=== PATIENT | female | born 1945 | race Caucasian/White ===

== ENCOUNTER 2024-06-29 15:07 | Outpatient (AMB) | payer MEDICARE, OTHER, SELFPAY ==
--- NOTE | 2024-06-29 15:07 | MHC.OFFVIS ---
Vital Signs 06/29/24 15:11 Height 5 ft 2.5 in Weight 145 lb 8.081 oz BMI 26.2 BP 140/64 H Blood Pressure Location Lt brachial Position Sitting Pulse 97 Pulse Source Pulse Oximeter Pulse Oximetry (%) 90 L Oxygen Delivery Method Nasal Cannula Intake Visit Reasons: Emphysema Allergies lisinopril Allergy (Severe, Verified 06/29/24 15:12) Anaphylaxis HPI Comments Details: The patient is here for pulmonary evaluation. The patient is a 78-year-old woman known history of COPD who apparently was in his usual state health until back in the fall 2023 she started developing shortness of breath and chest discomfort. Initially she was admitted to [facility] and was thought to have a demand myocardial infarction possibly from underlying COPD. She was subsequently discharged. She did then get an appointment with Cardiology who then had her do additional testing. It was concerning for active CAD and she was sent for percutaneous coronary intervention at [facility]. However, that can not be done and was recommended that she have open heart surgery for her CAD. She did undergo her surgery in the fall tolerating the surgery well. Postoperatively she had issues with a hydropneumothorax. She did have a chest tube in place. She did have significant subcutaneous air. Ultimately that chest about the replaced. The diffusing was improved in the pneumothorax subsided. The patient had a CT scan of the chest last in December 2023 which I personally reviewed with the patient. She does have extensive emphysema. She does have postoperative changes. Still residual subcutaneous air present. But now in the right lower lobe she has a masslike densities. Likely inflammatory infectious although they could not rule out malignancy. Therefore, this point we need to have a follow-up CAT scan. She has not had pulmonary function studies and some time with should also reassess her condition. From a respiratory status she had been on Stiolto. She does want to be on inhaled steroids because of the risk of infection as she has had multiple infections in the past. She does have sections congestion in the mucus is typically like green in color. Typically worse in the morning. She uses the nebulizer 2 to 3 times a day and also her inhaler multiple times a day. In part because he can not breathe in part because she is very anxious when she can not breathe. In the office we were able to get a sputum sample was sent for culture for both AFB and Gram stain. In the meantime will start her on azithromycin 3 times a week for chronic bronchitis and macrolide suppression therapy. She will continue the Stiolto for now. I do believe that Ohtuvayre nebulizer therapy will be a good option for her to decrease her significant mucus burden and to improve her obstructive airway disease. We will request the nebulized medicine from her insurance company. For now she is also using DuoNeb with some really although partially. She does use oxygen. She does not portable oxygen concentrator that she uses with activity. Therefore, will have the patient start the new medicine get a CT scan of the chest to follow-up the masslike densities and also order some PFTs and have her come back so we can review the results and see her response to therapy. The patient is aware that when she starts the azithromycin she will come in for an EKG to make sure that her QT is within normal limits. [facility] Medical History (Updated 06/29/24 @ 23:16 by Jong Woodson MD) Chronic respiratory failure Pleural effusion Pulmonary nodules COPD (chronic obstructive pulmonary disease) Review of Systems Const Denies chills, Denies daytime sleepiness, Denies fatigue, Denies fever(s), Denies snoring and Denies stops breathing during sleep Eyes Reports change in vision ENT Denies dizziness and Denies hearing loss Card Denies chest pain, Denies irregular heart rhythm, Denies claudication, Denies leg edema, Denies lightheadedness, Denies palpitations, Reports dyspnea on exertion and Denies orthopnea Resp Reports change in phlegm color, Reports chest congestion, Reports cough, Reports excessive phlegm production, Reports dyspnea on exertion, Denies snoring and Reports wheezing GI Denies abdominal pain, Denies hematochezia, Denies change in bowel habits, Denies nausea and Denies vomiting Denies urinary frequency and Denies dysuria Musc Denies arthralgias, Denies muscle weakness, Denies numbness and Denies other Skin/Breast Denies nail changes and Denies rash Neuro Denies Abnormal speech present, Denies dizziness, Denies memory loss and Denies numbness Psych Denies depression and Denies memory loss Endo Denies fatigue and Denies palpitations Bhavesh/Lymph Denies easy bruising Aller/Immun Reports wheezing Physical Exam Vital Signs: Last Vital Signs Pulse 97 06/29/24 15:11 BP 140/64 H 06/29/24 15:11 Pulse Ox 90 L 06/29/24 15:11 Oxygen Delivery Method Nasal Cannula 06/29/24 15:11 BMI result Body Mass Index 26.2 Const General: comfortable HEENT Head: Yes normocephalic Neck Neck: Yes supple Chest Chest palpation & inspection: normal inspection of the chest Resp Effort & Inspection: normal respiratory effort and prolonged expiratory phase Auscultation: rhonchi and diminished lung sounds Cardio Heart sounds: S1 normal heart sound present and S2 normal heart sound present GI Palpation (GI): Soft to palpation Skin General skin exam: no rashes or lesions noted Neuro Speech: No Abnormal speech present Extrem General: Yes clubbing and No cyanosis Results Reviewed Results Reviewed: Assessment & Plan Assessment & Plan (1) Pulmonary nodules: Code(s): R91.8 - Other nonspecific abnormal finding of lung field Category: Medical (2) Pleural effusion: Code(s): J90 - Pleural effusion, not elsewhere classified Category: Medical (3) COPD (chronic obstructive pulmonary disease): Code(s): J44.9 - Chronic obstructive pulmonary disease, unspecified Category: Medical Qualifiers: COPD type: chronic bronchitis Chronic bronchitis type: mucopurulent Qualified Code(s): J41.1 - Mucopurulent chronic bronchitis (4) Chronic respiratory failure: Code(s): J96.10 - Chronic respiratory failure, unspecified whether with hypoxia or hypercapnia Category: Medical Qualifiers: Respiratory failure complication: hypoxia Qualified Code(s): J96.11 - Chronic respiratory failure with hypoxia Plan continue Stiolto SANTI as needed Start Azithromycin MWF, will check EKG Start Ohtuvayre nebs BID CPT with acapella valve CT chest to f/u pulmonary densities in the RLL noted on CT chest 12/2023 from [facility] PFTs continue oxygen suppementation with POC F/U 2 months Orders: Orders Sputum Cult + Gram stain Today R91.1 - Solitary pulmonary nodule Acid-fast Culture + Smear Today R91.1 - Solitary pulmonary nodule PFT pulmonary function test Today J44.9 - Chronic obstructive pulmonary disease, unspecified, R91.8 - Other nonspecific abnormal finding of lung field ECG 12 lead EKG Today J44.9 - Chronic obstructive pulmonary disease, unspecified, R91.8 - Other nonspecific abnormal finding of lung field CT chest wo IV con Today J90 - Pleural effusion, not elsewhere classified, R91.8 - Other nonspecific abnormal finding of lung field Medications: New azithromycin Take 1 tablet on Friday/Friday/Friday 250 mg PO 3XW 12 tabs 6RF 28 days K21.9 - Gastro-esophageal reflux disease without esophagitis Coding Level of Care Code New Pt Level 5 (06863) Diagnoses Pulmonary nodules R91.8 Pleural effusion J90 Mucopurulent chronic bronchitis J41.1 COPD type: chronic bronchitis Chronic bronchitis type: mucopurulent Chronic respiratory failure with hypoxia J96.11 Respiratory failure complication: hypoxia Time Spent (min) 60
[2024-06-29 15:11] VITALS: BP 140/64; PULSE 97; O2SAT 90; BMI 26.2
--- OUTSIDE RECORDS SUMMARY | 2024-06-29 18:25 | XMS_ITS ---
Author Name [facility] Organization Unknown Care Team Organization Name Specialty Phone Email Start Date End [facility] 2023 [facility] 05/27/2023
--- OUTSIDE RECORDS SUMMARY | 2024-06-29 18:25 | XMS_ITS | Clinical Summary ---
Author Organization [facility] Address [address] [place] [address] Care Team Providers Care Flexographic Press Set Up Operator Name Role Phone Jose Kilpatrick MD Primary Care Provider [phone] Allergies Active Allergy Reactions Criticality Noted Date Comments Clindamycin 06/03/2023 Lisinopril Other (See Comments) 05/28/2023 Stopped breathing Medications Medication Sig Dispensed Refills Start Date End Date Status PARoxetine (PAXIL) 10 MG tablet Take 1 tablet (10 mg total) by mouth every morning. 0 Active Multiple Vitamin (MULTI-VITAMIN PO) Take by mouth daily. 0 Active Khagskv-Kcdzgijgslu-Jj rmoterol (BREZTRI AEROSPHERE IN) Inhale into the lungs 2 (two) times a day. 0 Active albuterol 108 (90 Base) MCG/ACT inhaler Inhale 2 puffs into the lungs every 6 (six) hours as needed for wheezing. 0 Active aspirin EC 81 MG tablet Take 1 tablet (81 mg total) by mouth daily. 0 Active Social History Tobacco Use Types Packs/Day Years Used Date Smoking Tobacco: Former Cigarettes 1 50 Q uit: 2022 Smokeless Tobacco: Never Tobacco Cessation:Counseling Given: Not Answered Alcohol Use Standard Drinks/Week Comments Not Currently 0 (1 standard drink = 0.6 oz pur e alcohol) Sex and Gender Information Value Date Recorded Sex Assigned at Female 05/28/2023 10:13 AM EDT Gender Identity Not on file Sexual Orientation Not on file Job Start Date Occupation Industry Not on file Not on file Not on file Last Filed Vital Signs Vital Sign Reading Time Taken Comments Blood Pressure - - Pulse - - Temperature - - Respiratory Rate - - Oxygen Saturation - - Inhaled Oxygen Concentration - - Weight 68 kg (150 lb) 05/28/2023 10:11 AM EDT Height 158.8 cm (5' 2.5 ) 05/28/2023 10:11 AM ED T Body Mass Index 27 05/28/2023 10:11 AM EDT Plan of Treatment Not on file Care Teams Flexographic Press Set Up Operator Relationship Specialty Start Date End Date Jose Kilpatrick MD [address] [place] [address] PCP - General Internal Medicine 05/29/23
--- OUTSIDE RECORDS SUMMARY | 2024-06-29 18:25 | XMS_ITS | Continuity of Care Document ---
Author Organization 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 Lipitor Weakness of leg Acti ve WILL inhibitors 1 Unable to assess criticality Persistent Severe Angioedema Active 1Angioedema requiring intubation 11/2016 Immunizations Given and Recorded Vaccine Date Status Refusal Reason tetanus/diphtheria/pertussis, acel(Tdap) 04/03/24 Recorded tetanus/diphtheria/pertussis, acel(Tdap) 01/07/19 Recorded SARS-CoV-2(COVID-19)mRNA-LNP vac([id number]) 04/03/24 Recorded SARS-CoV-2(COVID-19)mRNA-LNP vac([id number]) 03/13/23 Recorded influenza virus vaccine, inactivated 12/04/23 Give n influenza virus vaccine, inactivated 12/14/22 Jackson rded influenza virus vaccine, inactivated 01/06/22 Jackson rded influenza virus vaccine, inactivated 12/22/20 Jackson rded influenza virus vaccine, inactivated 10/3/19 Jackson rded influenza virus vaccine, inactivated 12/04/12 Give n pneumococcal 20-valent conjugate vaccine 06/19/23 Recorded pneumococcal 20-valent conjugate vaccine 06/19/23 Recorded RSV vaccine preF3, recombinant 12/14/22 Recorded [id number] 12y+ bivalent booster vax 1 12/11/21 Recorded SARS-CoV-2 (COVID-19) mRNA-1273 vaccine 06/16/21 R ecorded SARS-CoV-2 (COVID-19) mRNA-1273 vaccine 01/12/21 R ecorded SARS-CoV-2 (COVID-19) mRNA-1273 vaccine 06/07/20 G iven SARS-CoV-2 (COVID-19) mRNA-1273 vaccine 05/10/20 G iven Influenza Virus Vaccine (oldterm) 11/26/19 Recorde d zoster vaccine, inactivated 09/23/18 Recorded zoster vaccine, inactivated 09/01/18 Recorded zoster vaccine, inactivated 06/17/18 Recorded zoster vaccine, inactivated 06/14/18 Recorded pneumococcal 13-valent vaccine 07/11/14 Recorded Zoster Vaccine Live 06/01/12 Recorded Zoster Vaccine Live 09/20/10 Recorded pneumococcal 23-valent vaccine 06/01/12 Recorded 1Result Comment: Administered at [facility] Medications Aerochamber See Instructions, # 1 Unknown, Maintenance, to be used with inhalers as directed, 04/21/23 1:25:00 PMEST, Supply, 160, cm, 04/16/23 11:50:00 EST, Height Start Date: 04/21/23 Status: Ordered Quantity: 1.0 Unit: Unknown Repeat number: 1 albuterol CFC free 90 mcg/inh inhalation aerosol 180 mcg, 2, puffs, Inhalation, Every 4 hours, PRN, Refills 0, Maintenance, 12/18/23 9:29:00 AM EDT, Inhaler Start Date: 12/18/23 Status: Ordered Repeat number: 1 albuterol-ipratropium 3 mg-0.5 mg/3 ml inhalation solution BAND Nebulizer, 4 times a day, 0 Refills, Maintenance, 12/17/23 3:24:00 PM EDT, Inhalation Solution,Partial fill upon patient request if the prescription is for a schedule II opioid drug. Start Date: 12/17/23 Status: Ordered Repeat number: 1 aspirin 81 mg oral capsule 1 capsule = 81 mg, By Mouth, Daily in AM, # 30 capsule, 0 Refills, Maintenance, 12/26/23 6:39:00 AMEDT, Capsule, [facility], Partial fill upon patient request if the prescription is for a schedule II opioid drug., 158, cm, 12/18/23 14:28:00 EDT, Height, 72, kg, 11/25/23 6:43:00 EDT, Dry Weight Start Date: 12/26/23 Status: Ordered Quantity: 30.0 Unit: capsule Repeat number: 1 BiPAP Machine See Instructions, # 1 each, Refills 11, Tot. Refills 11, Maintenance, BIPAP 10 - 5cm H2O with heated humidification, mask, tubing, filters, headgear, chin strap, and water chamber. Alex provider access to wireless compliance data Length of need: Lifetime 99 months Diagnosis:, 11/13/23 10:18:00 AM EDT, Supply Start Date: 11/13/23 Status: Ordered Quantity: 1.0 Unit: each Repeat number: 12 dilTIAZem 120 mg/24 hours oral tablet, extended release TAKE 1 TABLET DAILY Start Date: 02/09/24 Status: Ordered Repeat number: 1 ezetimibe 10 mg oral tablet 1 tablet = 10 mg, By Mouth, Daily, # 30 tablet, 0 Refills, Maintenance, 01/01/24 11:25:00 AM EDT, Tablet, Partial fill upon patient request if the prescription is for a schedule II opioid drug. Start Date: 01/01/24 Status: Ordered Quantity: 30.0 Unit: tablet Repeat number: 1 Oxygen Oxygen, See Instructions, # 1 each, Refills 0, Tot. Refills 0, Maintenance, Oxygen (2) LPM with activity/ (2) LPM continuous Route of Delivery: Nasal Cannula Date of test : 12/17/21 Location : [facility] SpO2% RA resting (92%) SpO2% RA ambulating (84%) SpO2% on O2 ambulating (92%) on (2) LMP O2 Lengthof need: Lifetime 99 months, 12/24/21 7:09:00 PM EDT, Supply Start Date: 12/24/21 Status: Ordered Quantity: 1.0 Unit: each Repeat number: 1 Indication: Chronic obstructive pulmonary disease, unspecified Repatha = 140 mg, Subcutaneous Infusion, Every 28 days, 0 Refills, Maintenance, 01/01/24 11:29:00 AM EDT, Partial fill upon patient request if the prescription is for a schedule II opioid drug. Start Date: 01/01/24 Status: Ordered Repeat number: 1 Stiolto Respimat Inhalation, Daily, 0 Refills, Maintenance, 05/21/24 10:53:00 AM EST, Partial fill upon patient request if the prescription is for a schedule II opioid drug. Start Date: 05/21/24 Status: Ordered Repeat number: 1 traZODone 50 mg oral tablet 0.5, tablet, By Mouth, 2 times a day, PRN, # 90 tablet, Refills 1, Maintenance, NEEDED FOR ANXIETY AND DEPRESSION, 05/18/24 11:14:00 AM EST, Route to Pharmacy Electronically, [id number], 158, cm, 04/08/24 15:11:00 EST, Height, 72, kg, 11/25/23 6:43:00 EDT, Dry Weight Start Date: 05/18/24 Status: Ordered Quantity: 90.0 Unit: tablet Repeat number: 1 Vashe Topical Solution 475 mL, Topically, Every 12 hours, 0 Refills, Maintenance, Solution Start Date: 12/17/23 Status: Ordered Repeat number: 1 Problem List Condition Confirmation Course Effective Dates Status H ealth Status 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 Confirmed Active Carotid artery stenosis Confirmed Active Essential hypertension Confirmed Active Generalized anxiety disorder Confirmed Active TING (generalized anxiety disorder) Confirmed Active History of angioedema 2 Confirmed Active Hard of hearing Confirmed Active S/P CABG x 3 Confirmed Active History of diverticulitis Confirmed Active History of recurrent pneumonia Confirmed Active Hyperlipidemia Confirmed Active NSTEMI (non-ST elevated myocardial infarction) Confirmed Active Pad Confirmed Active Primary insomnia Confirmed Active Bilateral mastectomies with right breast cancer Confirmed 1986 Active COPD, severe Confirmed Active Tobacco dependence syndrome Confirmed Active Urinary incontinence Confirmed Active Encounter for postoperative wound check Confirmed Active 1Followed by dr Pete 2Required intubation; due to Lisinopril Social History Social History Type Response Smoking Status 5-9 cigarettes (betw een 1/4 to 1/2 pack)/day in last 30 days; Type: Cigarettes; Tobacco user in household: No; Other: Quit smoking August 2018.; Tobacco use times per day: 1 pack per day on average; Number of years: 58; Total pack years: 58; Started at age: 15; Stopped at age: 73; entered on: 09/20/21 Sex Sex Representation Female (finding) Patient Care team information Care Team Personnel Name: Karo Dunham RN Position: [facility] lease out man Member Role: Hospital Liaison Name: Nicole Kiran RN Position: [facility] RN Member Role: Primary Care Nurse Name: Serene Lafleur RN Position: [facility] RN Supv Member Role: Primary Care Nurse Name: Aleksandra Starr RN Position: [facility] RN Member Role: Primary Care Nurse Name: Riri Hooker RN Position: [facility] RN Member Role: Primary Care Nurse Name: Cathie Winters Position: [facility] Outreach Member Role: Primary Care Nurse Name: Ramon Calero RN Position: [facility] RN Member Role: Primary Care Nurse Name: Dunia Gage RN Position: [facility] RN Member Role: Primary Care Nurse Name: Wale Cueto RN Position: [facility] RN Member Role: Primary Care Nurse Name: Mindy Roberson RN Position: [facility] RN Member Role: Primary Care Nurse Name: Selena Conner RN Position: [facility] RN Member Role: Primary Care Nurse Name: Ulices Hernandez RN Position: [facility] RN Member Role: Primary Care Nurse Name: Rosalina Cohen RN Position: [facility] ED RN W/OE and Tasks Member Role: Primary Care Nurse Name: Leah Wilhelm RN Position: [facility] RN Member Role: Primary Care Nurse Name: Oly Hyman NP Position: Reference Physician Member Role: Primary Care Nurse Address: [address] [facility] [place] [address]- Telecom: Name: Brennan Summers RN Position: [facility] Rad RN Member Role: Primary Care Nurse Name: Cheryl Schmid NP Position: [facility] PCO Associate Professional Member Role: PCP Address: [address] [facility] [address] [place] [address]- Telecom: Name: Leah Gonzales RN Position: [facility] RN Member Role: Primary Care Nurse Name: Jimena Gilbert MD Position: [facility] Physician - Primary Care Member Role: Lifetime Consulting Physician Address: [address] [place] [address] [place] [address]- Telecom: Name: Romel Willis RN Position: S RN Member Role: Primary Care Nurse Name: Eli Perez RN Position: S RN Member Role: Primary Care Nurse Name: Cheryl Mendez RN Position: S RN Member Role: Primary Care Nurse Care Team Related Persons Name: CADY GERARD Name: OBDULIA COLLADO Insurance Providers Guarantor name: DORI VASQUEZ Health Plan Information #: 1 Payer: MEDICARE PART B OUTPT Member Number: NA Policy Number: NA Group Number: NA Health Plan Information #: 2 Payer: [employer] Member Number: NA Policy Number: NA Group Number: NA
--- OUTSIDE RECORDS SUMMARY | 2024-06-29 18:25 | XMS_ITS | Clinical Summary ---
Author Organization [facility] Address [address] [place] [address] Care Team Providers Care Molded Grid And Parts Inspector Name Role Phone Jose Kilpatrick MD Primary Care Provider [phone] [phone] Surgical History Surgery Date Site/Laterality Comments CHOLECYSTECTOMY PROCEDURE:CHOLECYSTECTOMY BREAST SURGERY Bilateral PROCEDURE:BREAST SURGERY;COMMENT:mastectomy COLONOSCOPY PROCEDURE:COLONOSCOPY FOOT SURGERY PROCEDURE:FOOT SURGERY CAROTID ENDARTERECTOMY Left PROCEDURE:CAROTID ENDARTERECTOMY Medical History Medical History Date Comments History of bilateral mastectomy DX:History of bilateral mastectomy; COMMENT: WITH RIGHT BREAST CANCER Diverticulitis DX:Diverticuliti s COPD (chronic obstructive pu lmonary disease) ([facility] V24, [facility] V28) DX:COPD (chronic o bstructive pulmonary disease) ([facility]);COMMENT:oxygen PRN Hypertension DX:Hypertension Anxiety DX:Anxiety Breast cancer ([facility] V24, [facility] V28) DX:Breast cancer ([facility]) Carotid stenosis DX:Carotid sten osis;COMMENT:left Myocardial infarction ([facility] V24, [facility] V28) DX:Myocardial infarction (HC C) 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 Hypotension DX:Hypotension Chronic hypoxic respiratory failure ([facility] V24, [facility] V28) DX:Chronic hypoxic respirat ory failure ([facility]) Family History Medical History Relation Name Comments COPD Mother Relation Name Status Comments Mother Social History Tobacco Use Types Packs/Day Years Used Date Smoking Tobacco: Former Cigarettes Q uit: 03/17/2022 Smokeless Tobacco: Never Alcohol Use Standard Drinks/Week Comments Not Currently 0 (1 standard drink = 0.6 oz pur e alcohol) Comments Unknown Sex and Gender Information Value Date Recorded Sex Assigned at Not on file Legal Sex Female 7:41 AM EST Gender Identity Not on file Sexual Orientation Not on file Obstetrics History Last Filed Vital Signs Vital Sign Reading Time Taken Comments Blood Pressure 148/88 05/09/2023 1:40 PM EST Pulse 81 05/09/2023 1:40 PM EST Temperature - - Respiratory Rate - - Oxygen Saturation - - Inhaled Oxygen Concentration - - Weight 69.9 kg (154 lb) 05/09/2023 1:40 PM EST Height 157.5 cm (5' 2 ) 05/09/2023 1:40 PM EST Body Mass Index 28.17 05/09/2023 1:40 PM EST Plan of Treatment Health Maintenance Due Date Last Done Comments DTaP,Tdap,and Td Vaccines (1 - Tdap) 1964 Pneumococcal Vaccine: 50+ Ye ars (1 of 2 - PCV) 1964 Zoster Vaccines (1 of 2) 09/08/1995 RSV Immunization Adult Patie nts (1 - 1-dose 75+ series) 2020 Cholesterol Screening (Lipid Panel) 04/15/2023 Depression Screening 04/15/2023 Falls Risk Assessment 04/15/2023 Hepatitis C Screening 04/15/2023 Lung Cancer Screening (Low Dose CT) 04/15/2023 Osteoporosis Screening (Bone Density Screening) 04/15/2023 Social Influencers of Health Screening 04/15/2023 COVID-19 Vaccine ( - 2023-2 5 season) 2023 Hypertension/CHF/CAD Annual BMP Blood Test 12/28/2023 Influenza Vaccine (Season Ended) 2024 HIB Vaccines Aged Out No longer eligi ble based on patient's age to complete this topic HPV Vaccines Aged Out No longer eligi ble based on patient's age to complete this topic Hepatitis A Vaccines Aged Out No long er eligible based on patient's age to complete this topic Hepatitis B Vaccines Aged Out No long er eligible based on patient's age to complete this topic IPV Vaccines Aged Out No longer eligi ble based on patient's age to complete this topic MMR Vaccines Aged Out No longer eligi ble based on patient's age to complete this topic Meningococcal ACWY Vaccine Aged Out N o longer eligible based on patient's age to complete this topic Meningococcal B Vaccine Aged Out No l onger eligible based on patient's age to complete this topic RSV Immunization Patients Un jarret 20 months Aged Out No longer eligible b ased on patient's age to complete this topic Varicella Vaccines Aged Out No longer eligible based on patient's age to complete this topic Care Teams Molded Grid And Parts Inspector Relationship Specialty Start Date End Date Jose Kilpatrick MD [address] [place] [phone] PCP - General 05/29/23
== END 2024-06-29 15:54 | disposition home or self-care (01) ==
LOC: HO.HPS 15:07
PROVIDERS: PCP Internal Medicine Cardiovascular Disease; Referring Provider Internal Medicine Cardiovascular Disease; Visit Provider Hospitalist
DX: R91.8 Other nonspecific abnormal finding of lung field (principal); J90 Pleural effusion, not elsewhere classified; J41.1 Mucopurulent chronic bronchitis; J96.11 Chronic respiratory failure with hypoxia
CPT/HCPCS: 99205

== ENCOUNTER 2024-06-29 15:07 | Outpatient (REF) | payer MEDICARE, OTHER, SELFPAY ==
--- OUTSIDE RECORDS SUMMARY | 2024-06-29 19:05 | XMS_ITS | Clinical Summary ---
Author Organization [facility] Address [address] [place] [address] Care Team Providers Care Customer Advisor Name Role Phone Jose Kilpatrick MD Primary Care Provider [phone] Surgical History Surgery Date Site/Laterality Comments CHOLECYSTECTOMY PROCEDURE:CHOLECYSTECTOMY BREAST SURGERY Bilateral PROCEDURE:BREAST SURGERY;COMMENT:mastectomy COLONOSCOPY PROCEDURE:COLONOSCOPY FOOT SURGERY PROCEDURE:FOOT SURGERY CAROTID ENDARTERECTOMY Left PROCEDURE:CAROTID ENDARTERECTOMY Medical History Medical History Date Comments History of bilateral mastectomy DX:History of bilateral mastectomy; COMMENT: WITH RIGHT BREAST CANCER Diverticulitis DX:Diverticuliti s COPD (chronic obstructive pu lmonary disease) ([facility] V24, [facility] [place]) DX:COPD (chronic o bstructive pulmonary disease) ([facility]);COMMENT:oxygen PRN Hypertension DX:Hypertension Anxiety DX:Anxiety Breast cancer ([facility] V24, [facility] V28) DX:Breast cancer ([facility]) Carotid stenosis DX:Carotid sten osis;COMMENT:left Myocardial infarction ([facility]/ CC V24, [facility] V28) DX:Myocardial infarction (HC C) 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
--- OUTSIDE RECORDS SUMMARY | 2024-06-29 19:05 | XMS_ITS | Clinical Summary ---
Author Organization [facility] Address [address] [place] [address] Care Team Providers Care School Superintendent Name Role Phone Jose Kilpatrick MD Primary Care Provider [phone] [phone] Allergies Active Allergy Reactions Criticality Noted Date Comments Clindamycin 06/03/2023 Lisinopril Other (See Comments) 05/28/2023 Stopped breathing Medications Medication Sig Dispensed Refills Start Date End Date Status PARoxetine (PAXIL) 10 MG tablet Take 1 tablet (10 mg total) by mouth every morning. 0 Active Multiple Vitamin (MULTI-VITAMIN PO) Take by mouth daily. 0 Active Apmqhaq-Vkdnruvklqq-Oa rmoterol (BREZTRI AEROSPHERE IN) Inhale into the [...] of Treatment Not on file Care Teams School Superintendent Relationship Specialty Start Date End Date Jose Kilpatrick MD [address] [place] [address] PCP - General Internal Medicine 05/29/23
== END 2024-06-29 15:08 | disposition home or self-care (01) ==
LOC: HO.LNP 15:07
PROVIDERS: PCP Internal Medicine Cardiovascular Disease; Referring Provider Internal Medicine Cardiovascular Disease; Visit Provider Hospitalist
DX: R91.1 Solitary pulmonary nodule (principal); R91.8 Other nonspecific abnormal finding of lung field; J41.1 Mucopurulent chronic bronchitis; J90 Pleural effusion, not elsewhere classified; J96.11 Chronic respiratory failure with hypoxia
CPT/HCPCS: 87070; 87116; 87205; 87206; 99202

== ENCOUNTER → 2024-07-15 10:59 | Outpatient (REF) | payer MEDICARE, OTHER, SELFPAY ==
--- NOTE | 2024-07-15 11:13 | ECG_ITS ---
Test Reason : ```COPD Blood Pressure : */* mmHG Vent. Rate : 95 BPM Atrial Rate : 95 BPM P-R Int : 166 ms QRS Dur : 80 ms QT Int : 348 ms P-R-T Axes : 79 38 67 degrees QTcB Int : 437 ms Normal sinus rhythm Normal ECG No previous ECGs available Referred By: Jong Woodson Electronically Signed By: Guanako Burch
--- OUTSIDE RECORDS SUMMARY | 2024-07-15 12:55 | XMS_ITS | Clinical Summary ---
Author Organization [facility] Address [address] [place] [address] Care Team Providers Care Flatbed Truck Driver Name Role Phone Jose Kilpatrick MD Primary Care Provider [phone] [phone] Allergies Active Allergy Reactions Criticality Noted Date Comments Clindamycin 06/03/2023 Lisinopril Other (See Comments) 05/28/2023 Stopped breathing Medications Medication Sig Dispensed Refills Start Date End Date Status PARoxetine (PAXIL) 10 MG tablet Take 1 tablet (10 mg total) by mouth every morning. 0 Active Multiple Vitamin (MULTI-VITAMIN PO) Take by mouth daily. 0 Active Aazncsq-Mhlqrsjujig-Nw rmoterol (BREZTRI AEROSPHERE IN) Inhale into the [...] of Treatment Not on file Care Teams Flatbed Truck Driver Relationship Specialty Start Date End Date Jose Kilpatrick MD [address] [place] [address] PCP - General Internal Medicine 05/29/23
--- OUTSIDE RECORDS SUMMARY | 2024-07-15 12:55 | XMS_ITS | Clinical Summary ---
Author Organization [facility] Address [address] [place] [address] Care Team Providers Care Freight Loading Supervisor Name Role Phone Jose Kilpatrick MD Primary Care Provider [phone] Surgical History Surgery Date Site/Laterality Comments CHOLECYSTECTOMY PROCEDURE:CHOLECYSTECTOMY BREAST SURGERY Bilateral PROCEDURE:BREAST SURGERY;COMMENT:mastectomy COLONOSCOPY PROCEDURE:COLONOSCOPY FOOT SURGERY PROCEDURE:FOOT SURGERY CAROTID ENDARTERECTOMY Left PROCEDURE:CAROTID ENDARTERECTOMY Medical History Medical History Date Comments History of bilateral mastectomy DX:History of bilateral mastectomy; COMMENT: WITH RIGHT BREAST CANCER Diverticulitis DX:Diverticuliti s COPD (chronic obstructive pu lmonary disease) ([facility] V24, [facility] V28) DX:COPD (chronic o bstructive pulmonary disease) ([facility]);COMMENT:oxygen PRN Hypertension DX:Hypertension Anxiety DX:Anxiety Breast cancer ([facility] V24, [facility] V28) DX:Breast cancer ([facility]) Carotid stenosis DX:Carotid sten osis;COMMENT:left Myocardial infarction ([facility]/ CC V24, [facility] V28) DX:Myocardial infarction (HC C) 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
== END ==
LOC: HO.CARD 10:59
PROVIDERS: PCP Nurse Practitioner Family; Visit Provider Hospitalist
DX: R91.8 Other nonspecific abnormal finding of lung field (principal); J44.9 Chronic obstructive pulmonary disease, unspecified
CPT/HCPCS: 93005

== ENCOUNTER → 2024-07-15 11:13 | Outpatient (BNV) | payer MEDICARE, OTHER, SELFPAY | PROVIDERS: PCP Nurse Practitioner Family; Visit Provider Internal Medicine Cardiovascular Disease | DX: J44.9 Chronic obstructive pulmonary disease, unspecified (principal) | CPT/HCPCS: 93010 ==

== ENCOUNTER 2024-08-26 13:17 | Outpatient (AMB) | payer MEDICARE, OTHER, SELFPAY ==
[2024-08-26 13:23] VITALS: BP 128/56; PULSE 90; O2SAT 93; BMI 25.6
--- NOTE | 2024-08-26 13:23 | A.OFFVIS_ITS ---
Vital Signs 08/26/24 13:23 Height 5 ft 2.5 in Weight 142 lb 3.17 oz BMI 25.6 BP 128/56 L Blood Pressure Location Lt brachial Position Sitting Pulse 90 Pulse Source Pulse Oximeter Pulse Oximetry (%) 93 Oxygen Delivery Method Nasal Cannula Oxygen Flow Rate 2 Intake Visit Reasons: Emphysema Meat Selector Required: No Allergies lisinopril Allergy (Severe, Verified 08/26/24 13:29) Anaphylaxis HPI Comments Details: The patient is a 78-year-old woman known history of COPD who apparently was in his usual state health until back in the fall 2023 she started developing shortness of breath and chest discomfort. Initially she was admitted to [facility] and was thought to have a demand myocardial infarction possibly from underlying COPD. She was subsequently discharged. She did then get an appointment with Cardiology who then had her do additional testing. It was concerning for active CAD and she was sent for percutaneous coronary intervention at [facility]. However, that can not be done and was recommended that she have open heart surgery for her CAD. She did undergo her surgery in the fall tolerating the surgery well. Postoperatively she had issues with a hydropneumothorax. She did have a chest tube in place. She did have significant subcutaneous air. Ultimately that chest about the replaced. The diffusing was improved in the pneumothorax subsided. The patient had a CT scan of the chest last in December 2023 which I personally reviewed with the patient. She does have extensive emphysema. She does have postoperative changes. Still residual subcutaneous air present. But now in the right lower lobe she has a masslike densities. Likely inflammatory infectious although they could not rule out malignancy. Therefore, this point we need to have a follow-up CAT scan. She has not had pulmonary function studies and some time with should also reassess her condition. From a respiratory status she had been on Stiolto. She does want to be on inhaled steroids because of the risk of infection as she has had multiple infections in the past. She does have sections congestion in the mucus is typically like green in color. Typically worse in the morning. She uses the nebulizer 2 to 3 times a day and also her inhaler multiple times a day. In part because he can not breathe in part because she is very anxious when she can not breathe. In the office we were able to get a sputum sample was sent for culture for both AFB and Gram stain. In the meantime will start her on azithromycin 3 times a week for chronic bronchitis and macrolide suppression therapy. She will continue the Stiolto for now. I do believe that Ohtuvayre nebulizer therapy will be a good option for her to decrease her significant mucus burden and to improve her obstructive airway disease. We will request the nebulized medicine from her insurance company. For now she is also using DuoNeb with some really although partially. She does use oxygen. She does not portable oxygen concentrator that she uses with activity. Therefore, will have the patient s tart the new medicine get a CT scan of the chest to follow-up the masslike densities and also order some PFTs and have her come back so we can review the results and see her response to therapy. The patient is aware that when she starts the azithromycin she will come in for an EKG to make sure that her QT is within normal limits. 08/26/2024 the patient is here for pulmonary follow-up visit. Overall the patient has been feeling better. It took her some time to get used to the Ohtuvayre nebulizer therapy but she seems to be responding well to it. She also started the azithromycin 3 times a week and that is also helping decrease her chest congestion. Her cough is still there but not as bad. The patient overall feels better. She is also using her oxygen with good effect. She did get the Acapella valve her she has not not been using as regularly. I did emphasize the importance of using the Acapella valve for chest physical therapy. Also did provide her with information about the online pulmonary rehabilitation that I would like her to look at in order to strengthen her respiratory capacity. In the meantime the patient will undergo PFTs and a CT scan in the coming weeks. Will plan to follow-up sometime after that. She will continue to follow-up with cardiology. She will need to get EKGs while on the azithromycin. Otherwise patient is without any other complaints will follow-up then if she has any issues prior to the next visit she will call for further recommendations. PENDING SALE TO [facility] Medical History (Updated 06/29/24 @ 23:16 by Jong Woodson MD) Chronic respiratory failure Pleural effusion Pulmonary nodules COPD (chronic obstructive pulmonary disease) Social History (Updated 08/26/24 @ 13:32 by Cass Pro CMA) Patient Tobacco Use Status: Former Tobacco user Review of Systems Const Denies chills, Denies daytime sleepiness, Denies fatigue, Denies fever(s), Denies snoring and Denies stops breathing during sleep Eyes Reports change in vision ENT Denies dizziness and Denies hearing loss Card Denies chest pain, Denies irregular heart rhythm, Denies claudication, Denies leg edema, Denies lightheadedness, Denies palpitations, Reports dyspnea on exertion and Denies orthopnea Resp Reports change in phlegm color, Reports chest congestion, Reports cough, Reports excessive phlegm production, Reports dyspnea on exertion, Denies snoring and Reports wheezing GI Denies abdominal pain, Denies hematochezia, Denies change in bowel habits, Denies nausea and Denies vomiting Denies urinary frequency and Denies dysuria Musc Denies arthralgias, Denies muscle weakness, Denies numbness and Denies other Skin/Breast Denies nail changes and Denies rash Neuro Denies Abnormal speech present, Denies dizziness, Denies memory loss and Denies numbness Psych Denies depression and Denies memory loss Endo Denies fatigue and Denies palpitations Bhavesh/Lymph Denies easy bruising Aller/Immun Reports wheezing Physical Exam Vital Signs: Last Vital Signs Pulse 90 08/26/24 13:23 BP 128/56 L 08/26/24 13:23 Pulse Ox 93 08/26/24 13:23 Oxygen Delivery Method Nasal Cannula 08/26/24 13:23 Oxygen Flow Rate 2 08/26/24 13:23 BMI result Body Mass Index 25.6 Const General: comfortable HEENT Head: Yes normocephalic Neck Neck: Yes supple Chest Chest palpation & inspection: normal inspection of the chest Resp Effort & Inspection: normal respiratory effort and prolonged expiratory phase Auscultation: no rhonchi and diminished lung sounds Cardio Heart sounds: S1 normal heart sound present and S2 normal heart sound present GI Palpation (GI): Soft to palpation Skin General skin exam: no rashes or lesions noted Neuro Speech: No Abnormal speech present Extrem General: Yes clubbing and No cyanosis Assessment & Plan Assessment & Plan (1) Pulmonary nodules: Code(s): R91.8 - Other nonspecific abnormal finding of lung field Category: Medical (2) Pleural effusion: Code(s): J90 - Pleural effusion, not elsewhere classified Category: Medical (3) COPD (chronic obstructive pulmonary disease): Code(s): J44.9 - Chronic obstructive pulmonary disease, unspecified Category: Medical Qualifiers: COPD type: chronic bronchitis Chronic bronchitis type: mucopurulent Qualified Code(s): J41.1 - Mucopurulent chronic bronchitis (4) Chronic respiratory failure: Code(s): J96.10 - Chronic respiratory failure, unspecified whether with hypoxia or hypercapnia Category: Medical Qualifiers: Respiratory failure complication: hypoxia Qualified Code(s): J96.11 - Chronic respiratory failure with hypoxia Plan continue Stiolto SANTI as needed, will trial Xopenex to minimize adverse effects continue Azithromycin MWF, will check EKG continue Ohtuvayre nebs BID CPT with acapella valve CT chest to f/u pulmonary densities in the RLL noted on CT chest [place] [facility] PFTs continue oxygen suppementation with POC F/U 2-3 months Medications: New levalbuterol tartrate 45 mcg/actuation (Xopenex HFA) 2 puffs inhalation Q6H PRN 15 grams 11RF shortness of breath or wheezing 30 days J45.909 - Unspecified ast hma, uncomplicated Coding Level of Care Code Est Pt Level 5 (24292) Complex EM visit Add On G2211 Diagnoses Pulmonary nodules R91.8 Pleural effusion J90 Mucopurulent chronic bronchitis J41.1 COPD type: chronic bronchitis Chronic bronchitis type: mucopurulent Chronic respiratory failure with hypoxia J96.11 Respiratory failure complication: hypoxia Time Spent (min) 60
--- OUTSIDE RECORDS SUMMARY | 2024-08-26 15:27 | XMS_ITS | Clinical Summary ---
Author Organization [facility] Address [address] [place] [address] Care Team Providers Care Gig Tender Name Role Phone Jose Kilpatrick MD Primary Care Provider [phone] [phone] Allergies Active Allergy Reactions Criticality Noted Date Comments Clindamycin 06/03/2023 Lisinopril Other (See Comments) 05/28/2023 Stopped breathing Medications Medication Sig Dispensed Refills Start Date End Date Status PARoxetine (PAXIL) 10 MG tablet Take 1 tablet (10 mg total) by mouth every morning. 0 Active Multiple Vitamin (MULTI-VITAMIN PO) Take by mouth daily. 0 Active Flhamze-Omvqieprenh-Sd rmoterol (BREZTRI AEROSPHERE IN) Inhale into the [...] of Treatment Not on file Care Teams Gig Tender Relationship Specialty Start Date End Date Jose Kilpatrick MD [address] [place] [address] PCP - General Internal Medicine 05/29/23
== END 2024-08-26 14:10 | disposition home or self-care (01) ==
LOC: HO.HPS 13:17
PROVIDERS: PCP Internal Medicine Cardiovascular Disease; Visit Provider Hospitalist
DX: R91.8 Other nonspecific abnormal finding of lung field (principal); J90 Pleural effusion, not elsewhere classified; J41.1 Mucopurulent chronic bronchitis; J96.11 Chronic respiratory failure with hypoxia
CPT/HCPCS: 99215; G2211

== ENCOUNTER → 2024-08-26 13:17 | Outpatient (BNVA) | payer MEDICARE, OTHER, SELFPAY | PROVIDERS: PCP Internal Medicine Cardiovascular Disease; Visit Provider Hospitalist | DX: J41.1 Mucopurulent chronic bronchitis (principal); J96.11 Chronic respiratory failure with hypoxia; J90 Pleural effusion, not elsewhere classified; R91.8 Other nonspecific abnormal finding of lung field | CPT/HCPCS: 99212 ==

== ENCOUNTER 2024-10-21 12:21 | Outpatient (REF) | payer MEDICARE, OTHER, SELFPAY ==
--- NOTE | ~2024-10-21 | CT_ITS ---
CLINICAL HISTORY: R91.8 - Other nonspecific abnormal finding of lung field CT chest without contrast Comparison: None provided Findings: The heart is normal size. Heavy salamatof coronary calcification with evidence of bypass grafting. No pericardial effusion. Aorta and pulmonary arteries are nonaneurysmal. Decompressed esophagus. No chest wall lesions or axillary adenopathy. The visualized thyroid and mediastinum are unremarkable. Diffuse predominant centrilobular emphysema. No dense consolidation The upper abdomen is unremarkable. The bones are intact. Degenerative changes of the thoracic spine. IMPRESSION: 1. Emphysematous change. No acute cardiopulmonary disease. No suspicious pulmonary nodules or masses. This document has been electronically signed by: Laura Galvan MD on 10/22/2024 08:29:47
--- OUTSIDE RECORDS SUMMARY | 2024-10-21 12:36 | XMS_ITS | Clinical Summary ---
Author Organization [facility] Address [address] [place] [address] Care Team Providers Care Balance Wheel Screw Hole Driller Name Role Phone Jose Kilpatrick MD Primary Care Provider [phone] [phone] Allergies Active Allergy Reactions Criticality Noted Date Comments Clindamycin 06/03/2023 Lisinopril Other (See Comments) 05/28/2023 Stopped breathing Medications Medication Sig Dispensed Refills Start Date End Date Status PARoxetine (PAXIL) 10 MG tablet Take 1 tablet (10 mg total) by mouth every morning. 0 Active Multiple Vitamin (MULTI-VITAMIN PO) Take by mouth daily. 0 Active Vgkyvgc-Cinfauhmqux-Bv rmoterol (BREZTRI AEROSPHERE IN) Inhale into the [...] of Treatment Not on file Care Teams Balance Wheel Screw Hole Driller Relationship Specialty Start Date End Date Jose Kilpatrick MD [address] [place] [address] PCP - General Internal Medicine 05/29/23
--- OUTSIDE RECORDS SUMMARY | 2024-10-21 12:36 | XMS_ITS | Clinical Summary ---
Author Organization [facility] Address [address] [place] [address] Care Team Providers Care Hspt Tutor Name Role Phone Jose Kilpatrick MD Primary Care Provider +1 [phone] Surgical History Surgery Date Site/Laterality Comments CHOLECYSTECTOMY PROCEDURE:CHOLECYSTECTOMY BREAST SURGERY Bilateral PROCEDURE:BREAST SURGERY;COMMENT:mastectomy COLONOSCOPY PROCEDURE:COLONOSCOPY FOOT SURGERY PROCEDURE:FOOT SURGERY CAROTID ENDARTERECTOMY Left PROCEDURE:CAROTID ENDARTERECTOMY Medical History Medical History Date Comments History of bilateral mastectomy DX:History of bilateral mastectomy; COMMENT: WITH RIGHT BREAST CANCER Diverticulitis DX:Diverticuliti s COPD (chronic obstructive pu lmonary disease) ([facility] V24, [facility] V28) DX:COPD (chronic o bstructive pulmonary disease) ([facility]);COMMENT:oxygen PRN Hypertension DX:Hypertension Anxiety DX:Anxiety Breast cancer ([facility] V24, [facility] V28) DX:Breast cancer ([facility]) Carotid stenosis DX:Carotid sten osis;COMMENT:left Myocardial infarction ([facility]/ [facility] V24, [facility] V28) DX:Myocardial infarction (HC C) 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 Hypotension DX:Hypotension Chronic hypoxic respiratory failure ([facility] V24, [facility] V28) DX:Chronic hypoxic respirat ory failure ([facility]) Family History Medical History Relation Name Comments [...] series) 2020 Cholesterol Screening (Lipid Panel) 04/15/2023 Falls Risk Assessment 04/15/2023 Hepatitis C Screening 04/15/2023 Lung Cancer Screening (Low Dose CT) 04/15/2023 Osteoporosis Screening (Bone Density Screening) 04/15/2023 Social Influencers of Health Screening 04/15/2023 COVID-19 Vaccine ( - 2023-2 5 season) 2023 Hypertension/CHF/CAD Annual BMP Blood Test 12/28/2023 Depression Screening 03/17/2024 Influenza Vaccine (#1) 2024 HIB Vaccines Aged Out No longer [...] age to complete this topic Care Teams Hspt Tutor Relationship Specialty Start Date End Date Jose Kilpatrick MD [address] [place] [phone] PCP - General 05/29/23
--- OUTSIDE RECORDS SUMMARY | 2024-10-21 12:36 | XMS_ITS ---
Author Name [facility]ISP Organization Unknown Care Team Organization Name Specialty Phone Email Start Date End Ciaran saunders [facility] 202309/28/2024 [facility] 05/27/2023
== END 2024-10-21 12:22 | disposition home or self-care (01) ==
LOC: HO.CT 12:21
PROVIDERS: Visit Provider Hospitalist
DX: R91.8 Other nonspecific abnormal finding of lung field (principal); J90 Pleural effusion, not elsewhere classified
CPT/HCPCS: 71250

== ENCOUNTER → 2024-10-21 12:23 | Outpatient (BNV) | payer MEDICARE, OTHER, SELFPAY | PROVIDERS: Visit Provider Radiology Diagnostic Radiology | DX: J43.9 Emphysema, unspecified (principal) | CPT/HCPCS: 71250 ==

== ENCOUNTER 2024-10-28 10:36 | Outpatient (AMB) | payer MEDICARE, OTHER, SELFPAY ==
--- OUTSIDE RECORDS SUMMARY | 2024-10-27 23:59 | XMS_ITS | Continuity of Care Document ---
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 Lipitor Weakness of leg Acti ve 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 1Angioedema requiring intubation 11/2016 Immunizations Given and Recorded Vaccine Date Status Refusal Reason tetanus/diphtheria/pertussis, acel(Tdap) 04/03/24 Recorded tetanus/diphtheria/pertussis, acel(Tdap) 01/07/19 Recorded SARS-CoV-2(COVID-19)mRNA-LNP vac([id number]) 04/03/24 Recorded SARS-CoV-2(COVID-19)mRNA-LNP vac([id number]) 03/13/23 Recorded influenza virus vaccine, inactivated 12/04/23 Give n influenza virus vaccine, inactivated 12/14/22 Jackson rded influenza virus vaccine, inactivated 01/06/22 Jackson rded influenza virus vaccine, inactivated 12/22/20 Jackson rded influenza virus vaccine, inactivated 10/3/19 Jackson rded influenza virus vaccine, inactivated 12/04/12 Give n pneumococcal 20-valent conjugate vaccine 06/19/23 Recorded pneumococcal 20-valent conjugate vaccine 06/19/23 Recorded RSV vaccine preF3, recombinant 12/14/22 Recorded [id number] 12y+ bivalent booster vax 1 12/11/21 Recorded [...] vaccine 06/01/12 Recorded 1Result Comment: Administered at [facility] Medications Aerochamber See Instructions, # 1 Unknown, Maintenance, to be used with inhalers as directed, 04/21/23 1:25:00 PMEST, Supply, 160, cm, 04/16/23 11:50:00 EST, Height Start Date: 04/21/23 Status: Ordered Quantity: 1.0 Unit: Unknown Repeat number: 1 Albuterol (Eqv-ProAir HFA) 90 mcg/inh inhalation aerosol 2 puffs, Inhalation, Every 6 hours, # 25.5 each, 11 Refills, Maintenance, 08/24/24 2:02:00 PM EDT, [facility] ST[facility], 90, INHALE 2 PUFFS EVERY 6 HOURS 30 DAYS, 158, cm, 07/01/24 9:59:00 EDT, Height, 72,kg, 11/25/23 6:43:00 EDT, Dry Weight Start Date: 08/24/24 Stop Date: 09/23/24 Status: Ordered Quantity: 25.5 Unit: each Repeat number: 1 albuterol-ipratropium 3 mg-0.5 mg/3 ml inhalation solution BAND Nebulizer, 4 times a day, 0 Refills, Maintenance, 12/17/23 3:24:00 PM EDT, Inhalation Solution,Partial fill upon patient request if the prescription is for a schedule II opioid drug. Start Date: 12/17/23 Status: Ordered Repeat number: 1 aspirin 81 mg oral delayed release tablet 81 mg, 1, tablet, By Mouth, Daily, # 30 tablet, Refills 5, Tot. Refills 5, Maintenance, 08/28/24 3:01:00 PM EDT, Route to Pharmacy Electronically, [facility]/pharmacy #[id number], Partial fill upon patient requestif the prescription is for a schedule II opioid drug., 158, cm, 07/01/24 9:59:00 EDT, Height, 72, kg, 11/25/23 6:43:00 EDT, Dry Weight Start Date: 08/28/24 Status: Ordered Quantity: 30.0 Unit: tablet Repeat number: 6 azithromycin 250 mg oral tablet 0 Refills, Maintenance, 07/01/24 9:59:00 AM EDT, Partial fill upon patient request if the prescription is for a schedule II opioid drug. Start Date: 07/01/24 Status: Ordered Repeat number: 1 BiPAP Machine See Instructions, [...] Quantity: 1.0 Unit: each Repeat number: 12 cephalexin monohydrate 500 mg oral capsule 1 capsule = 500 mg, By Mouth, 3 times a day, for 3 days, # 9 capsule, 0 Refills, Acute 10/28/24 9:27:00 AM EDT, 10/25/24 9:27:00 AM EDT, Capsule, [facility]/pharmacy #[id number], Partial fill upon patient request if the prescription is for a schedule II opioid drug., 158, cm, 10/15/24 12:59:00 EDT, Height, 72, kg, 11/25/23 6:43:00 EDT, Dry Weight Start Date: 10/25/24 Stop Date: 10/28/24 Status: Ordered Quantity: 9.0 Unit: capsule Repeat number: 1 dilTIAZem 120 mg/24 hours oral tablet, extended [...] Quantity: 30.0 Unit: tablet Repeat number: 1 fluticasone 50 mcg/inh nasal spray 2 sprays = 100 mcg, Nares, Both, 2 times a day, # 6 each, 3 Refills, Maintenance, 10/18/24 12:18:00 PM EDT, [facility]/pharmacy #[id number], 2 sprays Nares, Both 2 times a day,x90 days, 158, cm, 10/15/24 12:59:00 EDT, Height, 72, kg, 11/25/23 6:43:00 EDT, Dry Weight Start Date: 10/18/24 Stop Date: 10/13/25 Status: Ordered Quantity: 6.0 Unit: each Repeat number: 4 Oxygen Oxygen, See Instructions, # 1 each, Refills 0, Tot. Refills 0, Maintenance, Oxygen (2) LPM with activity/ (2) LPM continuous Route of Delivery: Nasal Cannula Date of test : 12/17/21 Location : [facility] SpO2% RA resting (92%) SpO2% RA ambulating (84%) SpO2% on O2 ambulating (92%) on (2) LMP O2 Lengthof need: Lifetime 99 months, 12/24/21 7:09:00 PM EDT, Supply Start Date: 12/24/21 Status: Ordered Quantity: 1.0 Unit: each Repeat number: 1 Indications: Chronic obstructive pulmonary disease, unspecified; Repatha = 140 mg, Subcutaneous Infusion, Every 28 days, 0 Refills, Maintenance, 01/01/24 11:29:00 AM EDT, Partial fill upon patient request if the prescription is for a schedule II opioid drug. Start Date: 01/01/24 Status: Ordered Repeat number: 1 sertraline 50 mg oral tablet 1 tablet, By Mouth, Daily, # 30 tablet, 5 Refills, Maintenance, 08/23/24 10:14:00 AM EDT, [facility]/pharmacy #[id number], 158, cm, 07/01/24 9:59:00 EDT, Height, 72, kg, 11/25/23 6:43:00 EDT, Dry Weight Start Date: 08/23/24 Status: Ordered Quantity: 30.0 Unit: tablet Repeat number: 6 Stiolto Respimat Inhalation, Daily, 0 Refills, Maintenance, 05/21/24 10:53:00 AM EST, Partial fill upon patient request if the prescription is for a schedule II opioid drug. Start Date: 05/21/24 Status: Ordered Repeat number: 1 traZODone 50 mg oral tablet 50 mg, 1, tablet, By Mouth, 3 times a day, # 270 tablet, Refills 0, Tot. Refills 0, Maintenance, 07/01/24 10:08:00 AM EDT, Route to Pharmacy Electronically, [facility]/pharmacy #[id number], Partial fill upon patient request if the prescription is for a schedule II opioid drug., 158, cm, 07/01/24 9:59:00 EDT, Height, 72, kg, 11/25/23 6:43:00 EDT, Dry Weight Start Date: 07/01/24 Stop Date: 09/29/24 Status: Ordered Quantity: 270.0 Unit: tablet Repeat number: 1 Vashe Topical [...] Team Personnel Name: Karo Dunham RN Position: [facility] certified alcohol and drug counselor Member Role: Whiteprinting Machine Operator Name: Nicole Kiran RN Position: [facility] RN Member Role: Primary Care Nurse Name: Serene Lafleur RN Position: [facility] RN Sincere Member Role: Primary Care Nurse Name: Aleksandra Starr RN Position: [facility] RN Member Role: Primary Care Nurse Name: Riri Hooker RN Position: [facility] RN Member Role: Primary Care Nurse Name: Cathie Winters Position: [facility] Outreach Member Role: Primary Care Nurse Name: Ramon Calero RN Position: [facility] RN Member Role: Primary Care Nurse Name: Dunia Gage RN Position: [facility] RN Member Role: Primary Care Nurse Name: Wale Cueto RN Position: [facility] RN Member Role: Primary Care Nurse Name: Mindy Roberson RN Position: [facility] RN Member Role: Primary Care Nurse Name: Selena Conner RN Position: [facility] RN Member Role: Primary Care Nurse Name: Ulices Hernandez RN Position: [facility] RN Member Role: Primary Care Nurse Name: Rosalina Cohen RN Position: [facility] SN RN Member Role: Primary Care Nurse Name: Leah Wilhelm RN Position: [facility] RN Member Role: Primary Care Nurse Name: Oly Hyman NP Position: Reference Physician Member Role: Primary Care Nurse Address: [address] [place] [address] Telecom: Name: Brennan Summers RN Position: [facility] Rad RN Member Role: Primary Care Nurse Name: Cheryl Schmid NP Position: [facility] PCO Associate Professional Member Role: PCP Address: [address] [place] [address] 3rd Floor [facility] [address]- [place] Telecom: Name: Leah Gonzales RN Position: S RN Member Role: Primary Care Nurse Name: Jimena Gilbert MD Position: S Physician - Primary Care Member Role: Lifetime Consulting Physician Address: [address] [facility] [place] [address]- [place] Telecom: Name: Romel Willis RN Position: S RN Member Role: Primary Care Nurse Name: Eli Perez RN Position: S RN Member Role: Primary Care Nurse Name: Cheryl Mendez RN Position: S RN Member Role: Primary Care Nurse Care Team Related Persons Name: CADY GERARD Name: OBDULIA COLLADO Insurance Providers Guarantor name: DORI BROWNLIVAN Health Plan Information #: 1 Payer: MEDICARE B Payer Identifier: Member Number: [id number] Group Number: Subscriber Identifier: [id number] Relationship to Subscriber: self Coverage Type: NA Coverage Verification Date: NA Telecom: NA Address: Health Plan Information #: 2 Payer: [facility] [employer] Payer Identifier: Member Number: [id number] Group Number: [id number] Subscriber Identifier: [id number] Relationship to Subscriber: self Coverage Type: Commercial Indemnity Coverage Verification Date: NA Telecom: NA Address:
--- NOTE | 2024-10-28 10:51 | MHC.OFFVIS ---
Vital Signs 10/28/24 10:52 Height 5 ft 2.5 in BMI Reason not done Patient refused/unable BP 90/48 L Blood Pressure Location Lt brachial Position Sitting Pulse 90 Pulse Source Pulse Oximeter Pulse Oximetry (%) 90 L Oxygen Delivery Method Nasal Cannula Oxygen Flow Rate 2 Intake Visit Reasons: Emphysema Avionics Repair Technician Required: No Accompanied by: Self / Same As Patient Allergies lisinopril Allergy (Severe, Verified 10/28/24 10:57) Anaphylaxis HPI Comments Details: The patient is a 79-year-old woman known history of COPD who apparently was in his usual state health until back in the fall 2023 she started developing shortness of breath and chest discomfort. Initially she was admitted to [facility] and was thought to have a demand myocardial infarction possibly from underlying COPD. She was subsequently discharged. She did then get an appointment with Cardiology who then had her do additional testing. It was concerning for active CAD and she was sent for percutaneous coronary intervention at [facility]. However, that can not be done and was recommended that she have open heart surgery for her CAD. She did undergo her surgery in the fall tolerating the surgery well. Postoperatively she had issues with a hydropneumothorax. She did have a chest tube in place. She did have significant subcutaneous air. Ultimately that chest about the replaced. The diffusing was improved in the pneumothorax subsided. The patient had a CT scan of the chest last in December 2023 which I personally reviewed with the patient. She does have extensive emphysema. She does have postoperative changes. Still residual subcutaneous air present. But now in the right lower lobe she has a masslike densities. Likely inflammatory infectious although they could not rule out malignancy. Therefore, this point we need to have a follow-up CAT scan. She has not had pulmonary function studies and some time with should also reassess her condition. From a respiratory status she had been on Stiolto. She does want to be on inhaled steroids because of the risk of infection as she has had multiple infections in the past. She does have sections congestion in the mucus is typically like green in color. Typically worse in the morning. She uses the nebulizer 2 to 3 times a day and also her inhaler multiple times a day. In part because he can not breathe in part because she is very anxious when she can not breathe. In the office we were able to get a sputum sample was sent for culture for both AFB and Gram stain. In the meantime will start her on azithromycin 3 times a week for chronic bronchitis and macrolide suppression therapy. She will continue the Stiolto for now. I do believe that Ohtuvayre nebulizer therapy will be a good option for her to decrease her significant mucus burden and to improve her obstructive airway disease. We will request the nebulized medicine from her insurance company. For now she is also using DuoNeb with some really although partially. She does use oxygen. She does not portable oxygen concentrator that she uses with activity. Therefore, will have the patient start the new medicine get a CT scan of the chest to follow-up the masslike densities and also order some PFTs and have her come back so we can review the results and see her response to therapy. The patient is aware that when she starts the azithromycin she will come in for an EKG to make sure that her QT is within normal limits. 08/26/2024 the patient is here for pulmonary follow-up visit. Overall the patient has been feeling better. It took her some time to get used to the Ohtuvayre nebulizer therapy but she seems to be responding well to it. She also started the azithromycin 3 times a week and that is also helping decrease her chest congestion. Her cough is still there but not as bad. The patient overall feels better. She is also using her oxygen with good effect. She did get the Acapella valve her she has not not been using as regularly. I did emphasize the importance of using the Acapella valve for chest physical therapy. Also did provide her with information about the online pulmonary rehabilitation that I would like her to look at in order to strengthen her respiratory capacity. In the meantime the patient will undergo PFTs and a CT scan in the coming weeks. Will plan to follow-up sometime after that. She will continue to follow-up with cardiology. She will need to get EKGs while on the azithromycin. Otherwise patient is without any other complaints will follow-up then if she has any issues prior to the next visit she will call for further recommendations. 10/28/2024 the patient is here for pulmonary follow-up visit. She continues to struggle with her breathing. She does have anxiety episodes were cause significant shortness of breath. We did talk about different techniques to use to help her with the breathing. She can also look into pulmonary rehabilitation. She is not interested in in-person since she had a bad experience at [facility] and she can do therefore do online. In the meantime it did give her a straw and she was able to walk well using a sterile technique to try to help her with the idea of pursed lip breathing. The patient did have a CT scan of the chest that we personally reviewed. She has extensive emphysema throughout. In view of her extensive emphysema and oxygen dependence will go ahead and request blood work including a blood gas. She may have evidence of hypercarbia specially with the worsening breathing. Right now her respiratory therapy is good she is tolerating the therapy well. [facility] Medical History (Updated 06/29/24 @ 23:16 by Jong Woodson MD) Chronic respiratory failure Pleural effusion Pulmonary nodules COPD (chronic obstructive pulmonary disease) Social History Patient Tobacco Use Status: Former Tobacco user Review of Systems Const Denies chills, Denies daytime sleepiness, Denies fatigue, Denies fever(s), Denies snoring and Denies stops breathing during sleep Eyes Reports change in vision ENT Denies dizziness and Denies hearing loss Card Denies chest pain, Denies irregular heart rhythm, Denies claudication, Denies leg edema, Denies lightheadedness, Denies palpitations, Reports dyspnea, Reports dyspnea on exertion and Denies orthopnea Resp Reports cough, Reports dyspnea, Reports dyspnea on exertion, Denies snoring and Reports wheezing GI Denies abdominal pain, Denies hematochezia, Denies change in bowel habits, Denies nausea and Denies vomiting Denies urinary frequency and Denies dysuria Musc Denies arthralgias, Denies muscle weakness, Denies numbness and Denies other Skin/Breast Denies nail changes and Denies rash Neuro Denies Abnormal speech present, Denies dizziness, Denies memory loss and Denies numbness Psych Denies depression and Denies memory loss Endo Denies fatigue and Denies palpitations Bhavesh/Lymph Denies easy bruising Aller/Immun Reports wheezing Physical Exam Vital Signs: Last Vital Signs Pulse 90 10/28/24 10:52 BP 90/48 L 10/28/24 10:52 Pulse Ox 90 L 10/28/24 10:52 Oxygen Delivery Method Nasal Cannula 10/28/24 10:52 Oxygen Flow Rate 2 10/28/24 10:52 Const General: comfortable HEENT Head: Yes normocephalic Neck Neck: Yes supple Chest Chest palpation & inspection: normal inspection of the chest Resp Effort & Inspection: normal respiratory effort and prolonged expiratory phase Auscultation: no rhonchi and diminished lung sounds Cardio Heart sounds: S1 normal heart sound present and S2 normal heart sound present GI Palpation (GI): Soft to palpation Skin General skin exam: no rashes or lesions noted Neuro Speech: No Abnormal speech present Extrem General: Yes clubbing and No cyanosis Assessment & Plan Assessment & Plan (1) Pulmonary nodules: Code(s): R91.8 - Other nonspecific abnormal finding of lung field Category: Medical (2) Pleural effusion: Code(s): J90 - Pleural effusion, not elsewhere classified Category: Medical (3) COPD (chronic obstructive pulmonary disease): Code(s): J44.9 - Chronic obstructive pulmonary disease, unspecified Category: Medical Qualifiers: COPD type: chronic bronchitis Chronic bronchitis type: mucopurulent Qualified Code(s): J41.1 - Mucopurulent chronic bronchitis (4) Chronic respiratory failure: Code(s): J96.10 - Chronic respiratory failure, unspecified whether with hypoxia or hypercapnia Category: Medical Qualifiers: Respiratory failure complication: hypoxia Qualified Code(s): J96.11 - Chronic respiratory failure with hypoxia Plan continue Stiolto SANTI as needed, will trial Xopenex to minimize adverse effects continue Azithromycin MWF, will check EKG continue Ohtuvayre nebs BID CPT with acapella valve On line pulmonary rehab bloodwork. bloodgas continue oxygen suppementation with POC F/U 2-3 months Orders: Orders Complete Blood Count Auto Diff 10/28/24 J41.1 - Mucopurulent chronic bronchitis, J96.11 - Chronic respiratory failure with hypoxia Immunoglobulins,IgG IgA IgM 10/28/24 J41.1 - Mucopurulent chronic bronchitis, J96.11 - Chronic respiratory failure with hypoxia Immunoglobulin E 10/28/24 J41.1 - Mucopurulent chronic bronchitis, J96.11 - Chronic respiratory failure with hypoxia Venous Blood Gas 10/28/24 J41.1 - Mucopurulent chronic bronchitis, J96.11 - Chronic respiratory failure with hypoxia Medications: Changed From albuterol sulfate 2.5 mg (3 mL) inhalation BID 30 days 180 mL 11RF J41.1 - Mucopurulent chronic bronchitis To albuterol sulfate 2.5 mg (3 mL) inhalation TID 270 mL 11RF 30 days J41.1 - Mucopurulent chronic bronchitis Coding Level of Care Code Est Pt Level 4 (08700) Complex EM visit Add On G2211 Diagnoses Pulmonary nodules R91.8 Pleural effusion J90 Mucopurulent chronic bronchitis J41.1 COPD type: chronic bronchitis Chronic bronchitis type: mucopurulent Chronic respiratory failure with hypoxia J96.11 Respiratory failure complication: hypoxia Time Spent (min) 18
[2024-10-28 10:52] VITALS: BP 90/48; PULSE 90; O2SAT 90
--- OUTSIDE RECORDS SUMMARY | 2024-10-28 11:45 | XMS_ITS | Clinical Summary ---
Author Organization [facility] Address [address] [place] [address] Care Team Providers Care Golf Course Patroller Name Role Phone Jose Kilpatrick MD Primary Care Provider [phone] Surgical History Surgery Date Site/Laterality Comments CHOLECYSTECTOMY PROCEDURE:CHOLECYSTECTOMY BREAST SURGERY Bilateral PROCEDURE:BREAST SURGERY;COMMENT:mastectomy COLONOSCOPY PROCEDURE:COLONOSCOPY FOOT SURGERY PROCEDURE:FOOT SURGERY CAROTID ENDARTERECTOMY Left PROCEDURE:CAROTID ENDARTERECTOMY Medical History Medical History Date Comments History of bilateral mastectomy DX:History of bilateral mastectomy; COMMENT: WITH RIGHT BREAST CANCER Diverticulitis DX:Diverticuliti s COPD (chronic obstructive pu lmonary disease) ([facility] [place], [facility] [place] DX:COPD (chronic o bstructive pulmonary disease) ([facility]);COMMENT:oxygen PRN Hypertension DX:Hypertension Anxiety DX:Anxiety Breast cancer ([facility] V24, [facility] V28) DX:Breast cancer ([facility]) Carotid stenosis DX:Carotid sten osis;COMMENT:left Myocardial infarction ([facility]/ [facility] V24, [facility] V28) DX:Myocardial infarction ([facility]) 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
--- OUTSIDE RECORDS SUMMARY | 2024-10-28 11:45 | XMS_ITS | Clinical Summary ---
Author Organization [facility] Address [address] [place] [address] Care Team Providers Care Apple Picking Supervisor Name Role Phone Jose Kilpatrick MD Primary Care Provider [phone] Allergies Active Allergy Reactions Criticality Noted Date Comments Clindamycin 06/03/2023 Lisinopril Other (See Comments) 05/28/2023 Stopped breathing Medications Medication Sig Dispensed Refills Start Date End Date Status PARoxetine (PAXIL) 10 MG tablet Take 1 tablet (10 mg total) by mouth every morning. 0 Active Multiple Vitamin (MULTI-VITAMIN PO) Take by mouth daily. 0 Active Xisalzn-Zzwlttbvvwu-Me rmoterol (BREZTRI AEROSPHERE IN) Inhale into the [...] of Treatment Not on file Care Teams Apple Picking Supervisor Relationship Specialty Start Date End Date Jose Kilpatrick MD [address] [place] [address] PCP - General Internal Medicine 05/29/23
== END 2024-10-28 11:33 | disposition home or self-care (01) ==
LOC: HO.HPS 10:38
PROVIDERS: PCP Internal Medicine Cardiovascular Disease; Visit Provider Hospitalist
DX: R91.8 Other nonspecific abnormal finding of lung field (principal); J90 Pleural effusion, not elsewhere classified; J41.1 Mucopurulent chronic bronchitis; J96.11 Chronic respiratory failure with hypoxia
CPT/HCPCS: 99214; G2211

== ENCOUNTER 2024-10-28 10:36 | Outpatient (REF) | payer MEDICARE, OTHER, SELFPAY ==
[2024-10-28 12:00] LABS: MANUAL DIFF FLAG NO
[2024-10-28 12:05] LABS: Hematocrit 39.7 % (37.0-47.0); Hemoglobin 12.6 g/dl (12.0-16.0); Imm Gran Abs Auto 0.04 X10*3/uL (0.00-0.03); Imm Gran Pct Auto 0.5 % (0.0-0.4); Lymphocytes Absolute Auto 1.0 X10*3/uL (1.2-4.9); Mean Corpuscular HGB Conc 31.7 g/dl (31.0-35.0); Mean Corpuscular Hemoglobin 29.0 pg (27.0-33.0); Mean Corpuscular Volume 91.3 fL (80.0-98.0); NRBC Abs Auto 0.000 X10*3/uL (0.0-0.012); NRBC Pct Auto 0.0 /100WBC (0.0-0.2); Platelet Count 288 X10*3/uL (160-400); Red Blood Count 4.35 X10*6/uL (4.20-5.50); Venous Blood Gas Refer to POC result; White Blood Count 8.6 X10*3/uL (4.8-10.8)
[2024-10-28 12:07] LABS: VBG HCO3 45 mmol/L (22-26)
[2024-10-28 12:08] LABS: VBG O2 % Saturation 39.0 %
== END 2024-10-28 10:37 | disposition home or self-care (01) ==
LOC: HO.LAB 10:36
PROVIDERS: PCP Internal Medicine Cardiovascular Disease; Visit Provider Hospitalist
DX: J41.1 Mucopurulent chronic bronchitis (principal); J96.11 Chronic respiratory failure with hypoxia; J90 Pleural effusion, not elsewhere classified; R91.8 Other nonspecific abnormal finding of lung field
CPT/HCPCS: 36415; 82784; 82785; 82803; 85025; 99212

== ENCOUNTER 2024-12-07 09:12 | Outpatient (REF) | payer MEDICARE, OTHER, SELFPAY ==
--- NOTE | 2024-12-07 09:20 | PFT_ITS ---
Flows: FEV1: 23 % of predicted at 0.43 L FVC: 65 % of predicted at 1.56 L FEV1/FVC: 27 % Bronchodilator response: Present Volumes: Total lung capacity: 107 % of predicted at 4.86 L Residual volume: 184 % of predicted at 3.72 L Slow vital capacity: 47 % of predicted at 1.14 L Expiratory reserve volume: 20 % of predicted at 0.12 L Diffusion capacity: Severely decreased Impression: Very severe obstructive ventilatory defect with positive bronchodilator response. Increased residual volume suggests air trapping. Decreased expiratory reserve volume suggests extrathoracic restriction likely secondary to abdominal obesity. Decreased diffusion capacity suggests emphysema. MTDD
[2024-12-07 10:39] VITALS: PULSE 90; O2SAT 87
--- OUTSIDE RECORDS SUMMARY | 2024-12-07 10:46 | XMS_ITS | Clinical Summary ---
Author Organization [facility] Address [address] [place] [address] Care Team Providers Care Metal Sorter Name Role Phone Jose Kilpatrick MD Primary Care Provider [phone] Surgical History Surgery Date Site/Laterality Comments CHOLECYSTECTOMY PROCEDURE:CHOLECYSTECTOMY BREAST SURGERY Bilateral PROCEDURE:BREAST SURGERY;COMMENT:mastectomy COLONOSCOPY PROCEDURE:COLONOSCOPY FOOT SURGERY PROCEDURE:FOOT SURGERY CAROTID ENDARTERECTOMY Left PROCEDURE:CAROTID ENDARTERECTOMY Medical History Medical History Date Comments History of bilateral mastectomy DX:History of bilateral mastectomy; COMMENT: WITH RIGHT BREAST CANCER Diverticulitis DX:Diverticuliti s COPD (chronic obstructive pu lmonary disease) ([facility] V24, [facility] V28) DX:COPD (chronic o bstructive pulmonary disease) ([facility]);COMMENT:oxygen PRN Hypertension DX:Hypertension Anxiety DX:Anxiety Breast cancer ([facility] V24, [facility] V28) DX:Breast cancer ([facility]) Carotid stenosis DX:Carotid sten osis;COMMENT:left Myocardial infarction ([facility]/ [facility] V24, [facility] V28) DX:Myocardial infarction ([facility]) 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 Hypotension DX:Hypotension Chronic hypoxic respiratory failure ([facility] V24, [facility] V28) DX:Chronic hypoxic respirat ory failure ([facility]) Family History Medical History Relation Name Comments [...] 04/15/2023 Social Influencers of Health Screening 04/15/2023 Hypertension/CHF/CAD Annual BMP Blood Test 12/28/2023 Depression Screening 03/17/2024 COVID-19 Vaccine (2023-2 5 season) 2024 Influenza Vaccine (#1) 2024 HIB Vaccines Aged [...] age to complete this topic Care Teams Metal Sorter Relationship Specialty Start Date End Date Jose Kilpatrick MD [address] [place] [phone] PCP - General 05/29/23
--- OUTSIDE RECORDS SUMMARY | 2024-12-07 10:46 | XMS_ITS | Clinical Summary ---
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 0 Active Multiple Vitamin (MULTI-VITAMIN PO) Take by mouth daily. 0 Active Urtjyqe-Ilkjcmcrnsg-Yo rmoterol (BREZTRI AEROSPHERE IN) Inhale into the [...] of Treatment Not on file Care Teams Firebrick And Refractory Tile Repairer Relationship Specialty Start Date End Date Jose Kilpatrick MD [address] [place] [address] PCP - General Internal Medicine 05/29/23
== END 2024-12-07 09:13 | disposition home or self-care (01) ==
LOC: HO.RESP 09:12
PROVIDERS: Visit Provider Internal Medicine Pulmonary Disease
DX: J44.9 Chronic obstructive pulmonary disease, unspecified (principal); R91.8 Other nonspecific abnormal finding of lung field
CPT/HCPCS: 94010; 94640; 94727; 94729

== ENCOUNTER → 2024-12-07 09:20 | Outpatient (BNV) | payer MEDICARE, OTHER, SELFPAY | PROVIDERS: Visit Provider Internal Medicine Pulmonary Disease | DX: J98.4 Other disorders of lung (principal) | CPT/HCPCS: 94060; 94727; 94729 ==